=== PATIENT | male | born 1965 | race Caucasian/White ===

== ENCOUNTER → 2020-05-04 | Outpatient (CLI) | payer BC ==
[2020-05-04] MEDS: IOHEXOL 300 MG/ML 100ML VIAL. IV ONE (09:56)
--- NOTE | 2020-05-04 14:08 | RAD ---
PQRS Compliance Statement: One or more of the following individualized dose reduction techniques were utilized for this examinat ion: 1. Automated exposure control 2. Adjustment of the mA and/or kV according to patient size 3. Use of iterative reconstruction technique CT NECK SOFT TISSUE WITH IV CONTRAST 05/04/2020 8:36 AM Indication: Facial mass in the left side of head. COMPARISON: None available. TECHNIQUE: Multiple axial CT images of the neck soft tissues were obtained after the intravenous admi nistration of 70 cc Omnipaque 300. Coronal and sagittal reformats are provided. FINDINGS: No suspicious enhancement is identified within the visualized portions of the brain parenchyma and po sterior fossa. Orbits are normal in appearance. Mild mucosal thickening of the left maxillary sinus. Tape Controlled Machine Stitcher space is normal in appearance. Pterygopalatine fossa is intact. Parapharyngeal fat is pres erved. Nasopharynx, oropharynx and hypopharynx are normal in appearance. Lungs and trachea are intact . Thyroid gland is normal in appearance. No pathologically enlarged cervical lymph nodes are identifi ed. There is a lobulated, partly cystic mass within the superficial lobe of the left parotid gland me asuring 3.1 x 2.1 x 3.1 cm (AP by transverse by craniocaudal). There is no involvement of the deep lo be of the left parotid. There is no associated skin thickening or fat stranding. No extension of the skull base neural foramen. There is subtle fullness of the anterior inferior margin the left submandi bular gland measuring 2.1 x 1.5 x 2.2 cm. Heart size is within normal limits. Lungs are clear. Mild cervical and thoracic spondylosis. IMPRESSION: 1. Left parotid mass measures 3.1 x 2.1 x 3.1 cm localized to the superficial lobe of the left paroti d gland. There is no involvement of adjacent structures and external to the parotid gland. No definit e parotid ductal dilatation. There is cystic component without adjacent inflammatory changes. Differe ntial considerations include primary or malignant parotid gland tumors versus lymphadenopathy associa lena with reactive inflammatory changes or, metastasis or lymphoma. Ultrasound-guided fine-needle aspi ration/core needle biopsy is recommended for further evaluation. Ultrasound evaluation of the left submandibular gland could be of benefit to assess for any potential mass. Consideration may be given for asymmetric atrophy of the left submandibular gland. Electronically signed by: Lyly Trinidad MD (05/04/2020 2:05 PM) [facility]
== END ==
LOC: CT 08:36
PROVIDERS: ATTEND Family Medicine
DX: R22.0 Localized swelling, mass and lump, head (principal)
CPT/HCPCS: 70491; Q9967

== ENCOUNTER 2020-06-04 07:34 | Outpatient (CLI) | payer BC ==
[~2020-06-04] VITALS: Ht 175.3 cm; Wt 124.7 kg
[2020-06-04] VITALS (7 sets, daily range): BP systolic 119–144; BP diastolic 75–89
[2020-06-04] MEDS ORDERED: LIDOCAINE WITH 8.4% SOD BICARB 3 ML DISP.SYRIN. ONE (08:25)
[2020-06-04] MEDS ORDERED: LIDOCAINE WITH 8.4% SOD BICARB 3 ML DISP.SYRIN. INJ ONE (09:30)
--- NOTE | 2020-06-04 10:22 | NUR ---
Discharge Note: CAMILLE SWEENEY Discharge instructions and discharge home medications reviewed with Patient and a copy given. All questions have been answered and understanding verbalized. The following instructions and handouts were given: incision care Discontinued lines and drains: no lines or drains to discontinue. Patient discharged to Home or Self [facility]
--- NOTE | 2020-06-04 14:10 | RAD ---
Ultrasound-guided biopsy, left parotid mass 06/04/2020 INDICATION: Mixed cystic and solid left parotid mass Discussion The procedure was explained in its entirety to the patient or the patients designated traveling representative by a member of the treatment team, including a discussion of the risks, benefits and commonly accepted alternatives to the procedure, as well as the expected consequences of no therapy whatsoever. Discussion of the risks included, but was not limited to, those that are most frequent and those that are rare but possibly severe or life-threatening, as well as the possibility of unforeseen complications. All elements of maximal sterile barrier technique including the use of a cap, mask, sterile gown, sterile gloves, large sterile drapes appropriate hand hygiene, and 2% chlorhexidine for cutaneous antisepsis (or acceptable alternative antiseptic per current guidelines) were followed for this procedure. Ultrasound evaluation demonstrates a mixed solid and cystic mass in the left parotid gland. On percent lidocaine was administered for local anesthesia. Under direct ultrasound guidance fine-needle aspiration was performed. Relatively scant material was obtained. Therefore 20-gauge core biopsy samples were obtained. These were delivered to nanotechnology engineering technologist was present during the biopsy. [place] were removed and manual pressure was held. No immediate complications were identified. Also performed following biopsy of the mass was a brief ultrasound evaluation of a nodule in the left submandibular gland which measures up to 2.4 cm is predominantly cystic. Peripheral subtle elements appear to be present. No internal blood flow is identified on color Doppler imaging. IMPRESSION: 1.Ultrasound-guided biopsy, left parotid mass 2. 2.4 cm predominantly cystic mass in the left submandibular gland
--- NOTE | 2020-06-09 11:10 | PATHOLOGY ---
Note [facility] Accession Number: [id number] TESTS RESULT FLAG UNITS REF RANGE LAB Clinician Provided Cytology Information No. of containers..01 Other (Miscellaneous) Source: LEFT PAROTID FNA DIAGNOSIS: LEFT PAROTID FNA SUSPICIOUS FOR NEOPLASM. SMEARS CONTAIN NUMEROUS CLUSTERS OF EPITHELIAL CELLS HAVING ACINIC CELL FEATURES. THE FINDINGS ARE SUSPICIOUS FOR ACINIC CELL NEOPLASM. THE CASE IS ALSO EXAMINED BY DR. ESCOBAR, WHO CONCURS WITH THE DIAGNOSIS. THIS INTERPRETATION INCLUDES EVALUATION OF A CELL BLOCK. Signed out by: 02 Diogo Almaraz MD, Pathologist NPI- [id number] Performed by: Roula House, Civil Engineering Project Manager ([facility]) Gross description: 01 30ML, CLOUDY/PINK, 2 FX 4 DQ /LCS 06/07/2020 0750 Local FLAG LEGEND: L-Low Normal,H-High Normal,LL-Alert Low,HH-Alert High <-Panic Low,>-Panic High,A-Abnormal,AA-Critical Abnormal Performed at: [facility] [address] [place] [address] Josue Escobar MD, [address] [facility] [address] [place] [address] Diogo Almaraz MD, Specimen Comment: A courtesy copy of this report has been sent to [phone], [phone] Specimen Comment: [phone] Specimen Comment: Report sent to ,DR SIMON / DR MCNAIR Performed at: [address], [place], [place] [id number] MD Josue Escobar MD Phone: [phone]
--- NOTE | 2020-06-10 09:10 | PATHOLOGY ---
[facility] Accession Number: [id number] . 01 Material submitted: . parotid gland - LEFT PAROTID MASS CORE BX. Modifiers: left . 01 Clinical history: . LEFT PAROTID MASS . 02 Diagnosis: Fibroadipose tissue, left parotid mass core biopsy: - Parotid neoplasm suspicious for acinic cell neoplasm. See comment. (JPM:reza; 06/09/2020) QMS 06/09/2020 1031 Local . 02 Comment: The specimen is scant in nature and highly fragmented. There are scattered clusters of epithelial cells having a fused glandular appearance. The tumor cells have ample amounts of basophilic granular cytoplasm, and possess rounded mildly pleomorphic hyperchromatic nuclei sometimes containing nucleoli. There is a single mitosis identified. One of the tissue fragments shows reactive fibrous tissue containing an infiltrating acinar structure and focal hemosiderin laden macrophages. The morphologic findings are suspicious for an acinic cell neoplasm. The case is also examined by Dr. Newton, who concurs with the diagnosis. (JPM:reza; 06/09/2020) . 02 Electronically signed: . Diogo Almaraz MD, Pathologist NPI- [id number] . 01 Gross description: . The specimen is received in formalin, labeled "Mic Hester parotid mass". Received are several fragments of friable pale jackson tissue measuring 0.5 x 0.2 x 0.1 cm in aggregate dimensions. The specimen is filtered and entirely submitted in cassette A1. (CAA; 06/04/2020) QAC/QAC 06/04/2020 1607 Local . 02 Pathologist provided ICD-10: K11.8 . 02 CPT . 630101 Specimen Comment: A courtesy copy of this report has been sent to [phone], [phone] Specimen Comment: [id number] Specimen Comment: Report sent to / DR MCNAIR Specimen Comment: A duplicate report has been generated due to demographic updates. Performed at: [address], [place] [id number] MD Josue Newton MD Phone: [phone] [facility]formed at: [facility] [address] [place], [place] [id number] MD Diogo Almaraz MD Phone: [phone]
== END 2020-06-04 10:20 | disposition home or self-care (01) ==
LOC: INTRAD 07:34
PROVIDERS: ATTEND Nurse Practitioner Gerontology
DX: D11.0 Benign neoplasm of parotid gland (principal); K11.8 Other diseases of salivary glands; Z79.899 Other long term (current) drug therapy
CPT/HCPCS: 42400; 76942; 88173; 88305; J3490; 10005

== ENCOUNTER → 2021-10-06 | Outpatient (CLI) | payer BC, OTHER ==
[2020-06-04 10:15] VITALS: BP 131/88
--- NOTE | 2021-10-07 11:06 | RAD ---
US HEAD/NECK SOFT TISSUE History:Reason: LEFT FACE NUMBNESS/SWELLING / Spl. Instructions: / History: Comparison: CT May 04, 2020 Technique: Sonographic examination of the facial soft tissues Findings: Small submandibular benign-appearing lymph nodes measure 1.6 x 1.1 cm and 1.0 x 0.6 cm. Symmetric magdiel earance of the parotid glands. No abnormal mass. Impression: 1. Small benign-appearing left submandibular lymph nodes. If persistent clinical concern, CT can fur ther assess. Electronically signed by: Saeid Galicia DO (10/07/2021 11:04 AM) [id number]
== END ==
LOC: US 15:41
PROVIDERS: ATTEND Family Medicine
DX: K11.1 Hypertrophy of salivary gland (principal)
CPT/HCPCS: 76536